=== PATIENT | male | born 1935 ===

== ENCOUNTER 2022-04-26 19:54 | Emergency (ER) | payer SELFPAY ==
[~2022-04-26] VITALS: Ht 180.3 cm; Wt 79.1 kg
[2022-04-26 19:54] VITALS: BP 169/75
[2022-04-26] MEDS ORDERED: ALLO100T PO (20:10)
[2022-04-26] MEDS ORDERED: AMLO1TAB24 PO (20:11)
[2022-04-26] MEDS ORDERED: COLC0.6T47 PO (20:11)
[2022-04-26] MEDS ORDERED: ELIQ5TAB PO (20:12)
[2022-04-26] MEDS ORDERED: LEVO25TA5 PO (20:13)
[2022-04-26] MEDS ORDERED: METO10TA2 PO (20:14)
== END 2022-04-26 20:33 | disposition left against medical advice (07) ==
LOC: M ED 19:54
DX: Z53.21 Procedure and treatment not carried out due to patient leaving prior to being seen by health care provider (principal)